=== PATIENT | female | born 1940 | race Caucasian/White ===

== ENCOUNTER 2017-02-07 22:26 | Inpatient (IN) | payer OTHER ==
[~2017-02-07] VITALS: Ht 167.6 cm; Wt 67.1 kg
--- NOTE | ~2017-02-07 | HC ---
[facility] [place] [address] CONSULTATION Name: RENEE SHARPE Room #: 460-P ADM IN M.R.#: [id number] Admission: 02/08/17 Attend Phys: Emory Harvey MD Discharge: Date of : 38 Report #: [id number] THIS REPORT FOR: //name// CC: Ash Mcmillan DATE OF SERVICE: 02/08/2017 PRIMARY CARE PHYSICIAN: Hunter Mcmillan MD. REFERRING PHYSICIAN: Ash Hua MD. REASON FOR REFERRAL: COPD. HISTORY OF PRESENT ILLNESS: The patient is a 76-year-old white female who was brought to the emergency room in respiratory distress. A pulmonary consultation was requested. The patient has known COPD. She was hospitalized at [facility] recently. [place] farm [place]. According to the family, the patient was hospitalized for recent pneumonia. She was said to have Pseudomonas pneumonia. She was in her usual state of health until the day prior to presentation. The patient became markedly short of breath and hypoxic. Saturation was 78%. She was transferred to the emergency room. Chest x-ray in the ER shows mild left lower lobe infiltrate and/or atelectasis. Increased gaseous content was noted in the stomach. Presently, she states that she is better. She appears mildly dyspneic. She denies any chest pain or abdominal discomfort. She looks frail. 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 ALLERGIES: PENICILLIN, reactions not specified; DILTIAZEM, reactions not specified; DOXYCYCLINE, reactions unknown; INDOMETHACIN, reactions unknown; LISINOPRIL, reactions unknown; and SULFA, reactions unknown. HOME MEDICATIONS: List reviewed. This include aspirin, Coreg, Klonopin, Lasix, guaifenesin, potassium supplements, Cozaar, Prevacid, senna, Zocor, Tums, uncertain if this is complete list of home medications. [facility] [address] [place] [address] CONSULTATION Name: RENEE SHARPE Room #: 460-P [facility] IN ..#: [id number] Admission: 02/08/17 Attend Phys: Emory Harvey MD Discharge: Date of : 38 Report #: [id number] FAMILY HISTORY: Noncontributory. SOCIAL HISTORY: The patient has never smoked. She drinks occasionally. MEDICAL DIRECTIVE: She is a DNR. REVIEW OF SYSTEMS: As mentioned above, otherwise 10-point system review negative. PHYSICAL EXAMINATION: GENERAL: She is awake, alert, and appears to be mildly dyspneic and weak. VITAL SIGNS: Temperature is 97.4 degrees Fahrenheit, pulse is 90, respiratory rate is 18, blood pressure is 99/61 mmHg, and saturation is 98%. HEENT: Normocephalic and atraumatic. NECK: Supple, without any lymphadenopathy or thyromegaly. CHEST: Air movements are decreased bilaterally, without obvious wheezes or rales. CARDIOVASCULAR: Normal S1, S2. PMI is nondisplaced. Pulses are 2+/4+ bilaterally. No obvious murmurs or gallop. ABDOMEN: Soft and nontender. No organomegaly or masses felt. GENITOURINARY: Deferred. RECTAL: Deferred. EXTREMITIES: No cyanosis or clubbing. Remarkable for less than 1+ bilateral pretibial edema. LABORATORY DATA: Chest x-ray again shows lung milan are clear with mild left lower lobe infiltrate or atelectasis. Electrolytes unremarkable, except for creatinine of 2.1, BUN is 51, and bicarbonate is 39. Liver function profile is mildly abnormal. WBC 22,100, there is no significant bandemia, hemoglobin 7.1, and platelets are normal. Troponin is normal. Arterial blood gas revealed pH of 7.16, pCO2 of 127, and pO2 of 62 on room air. IMPRESSION: 1. Acute on chronic hypercapnic hypoxic respiratory failure in this 76-year-old white female. Etiology is probably related to underlying chronic obstructive pulmonary disease. Cannot rule out pneumonia given radiographic findings. 2. Mild left lower lobe infiltrate, possible pneumonia. With a recent history of Pseudomonas pneumonia, we will need to cover accordingly. 3. Chronic obstructive pulmonary disease, felt to be severe with an apparent chronic hypercapnic respiratory insufficiency. 4. Renal impairment. Unclear if this is acute or chronic. Presumed acute kidney injury. 5. Generalized debility and weakness. 6. Medical directive: She is a do not resuscitate. RECOMMENDATIONS: Agree with broad-spectrum antibiotics, corticosteroids, and [address] [address] CONSULTATION Name: RENEE SHARPE Janis Room #: 460-P ADM IN M.R.#: [id number] Admission: 02/08/17 Attend Phys: Emory Harvey MD Discharge: Date of : 38 Report #: [id number] bronchodilators. In terms of antibiotics, I would recommend cover for pseudomonal infections given her recent history. I would also consider cover for aspiration possible aspiration pneumonia. We will continue noninvasive positive-pressure ventilation p.r.n. Note that profound hypercapnic respiratory failure suggest that the patient likely has severe pulmonary impairment. Medical directive status noted. Should her pulmonary condition worsens, we will consider comfort care at that time. Thank you for this consultation. <ELECTRONICALLY SIGNED> By: Fred Read MD 02/10/17 1209 1545 0002 Fred Read MD /nt
--- NOTE | ~2017-02-07 | DEA ---
[facility] [place] [address] SUMMARY Name: RENEE SHARPE Room #: 460-P [facility] IN M.R.#: [id number] Admission: 02/08/17 Attend Phys: Emory Harvey MD Discharge: 02/14/17 Date of : 38 Report #: [id number] THIS REPORT FOR: //name// CC: Hunter Harvey DATE OF SERVICE: 02/14/2017 DATE AND TIME OF : 02/14/2017, at 2021. HISTORY OF PRESENT ILLNESS: The patient is a 76-year-old female who presented to [facility] on 02/08/2017, after most recent discharge from the hospital. She has a history of congestive heart failure and COPD. She presented with respiratory distress. She was a resident at a farm. She had recently been hospitalized at [facility] 2 weeks prior for the similar symptoms as well as pseudomonas pneumonia. She is normally on 4.5 liters oxygen continuously. She was found to be in acute on chronic combined respiratory failure and COPD exacerbation as well as renal failure. 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 After discussion with the family, it was decided to put her on the hospice palliative care and she was kept very comfortable and peacefully at the above date and time. The body was released with the family. <ELECTRONICALLY SIGNED> By: Franck Eddy, 02/15/17 1422 0952 1132 Franck Eddy DO /nt
--- NOTE | ~2017-02-07 | HC ---
[facility] [place] [address] CONSULTATION Name: RENEE SHARPE Room #: 460-P [facility] IN M.R.#: [id number] Admission: 02/08/17 Attend Phys: Emory Harvey MD Discharge: Date of : 38 Report #: [id number] THIS REPORT FOR: //name// CC: Hunter Harvey DATE OF SERVICE: 02/11/2017 REQUESTING PHYSICIAN: Dr. Read. REASON FOR CONSULTATION: Palliative care consult. HISTORY OF PRESENT ILLNESS: The patient is a 76-year-old female who presented to [facility] on 02/08/2017 after most recent discharge from the hospital. She has a history of CHF and COPD. She had respiratory distress at her residence at the [facility]. She recently was hospitalized at [facility] 2 weeks for respiratory distress and had Pseudomonas pneumonia. She normally wears about 4-1/2 liters of oxygen continuously, subsequently found to have acute on chronic combined respiratory failure and COPD exacerbation as well as acute renal failure. Unfortunately, the patient has severe end-stage COPD per Pulmonology. She has possible pneumonia as well at this current time. I did discuss this with the patient at today's visit. She reports that currently, she is feeling somewhat better, although she has not had significant recovery in her overall functioning. She is concerned about this as she reports that she was previously helping her significantly at home and she wants to return to that prior level if this is possible to help him. She notes that her quality of life has been declining over the past year. She has a DNR at this time. PAST MEDICAL HISTORY: COPD, chronic hypoxic respiratory failure, history of what appears to be diastolic CHF, history of Pseudomonas pneumonia. ALLERGIES: AMOXICILLIN, DILTIAZEM, DOXYCYCLINE, INDOMETHACIN, LISINOPRIL, SULFA, VERAPAMIL. MEDICATIONS AT HOME: These included aspirin, Coreg, Klonopin, Lasix, guaifenesin, potassium, Cozaar, Prevacid, senna, Zocor, Tums. FAMILY HISTORY: Currently noncontributory. SOCIAL HISTORY: Occasional drinking. She is not currently a smoker. She lives with her at home. She is currently a DNR. REVIEW OF SYSTEMS: GENERAL: The patient reports no particular weight changes. She does report generalized malaise and fatigue. HEENT: Denies any visual changes. [address] [address] CONSULTATION Name: RENEE SHARPE Room #: 460-P [facility] IN .R.#: [id number] Admission: 02/08/17 Attend Phys: Emory Harvey MD Discharge: Date of : 38 Report #: [id number] CARDIOVASCULAR: Denies chest pain, palpitations. Does report some mild lower extremity edema. RESPIRATORY: Reports shortness of breath, cough and wheezing. ABDOMEN: Denies nausea, vomiting, constipation or diarrhea. EXTREMITIES: Does report generalized weakness. PHYSICAL EXAMINATION: VITAL SIGNS: Include temperature 36.4, pulse 108, respirations 18, blood pressure 112/68, oxygen 99%, this is on 5 liters, which we did lower slightly back to her reference of 4. GENERAL: The patient appears to be in mild respiratory distress. CARDIOVASCULAR: Regular rate and rhythm without murmur, slightly tachycardic. RESPIRATORY: Does have diffuse mild wheezing. LUNGS: Diminished breath sounds noted all throughout her lungs. ABDOMEN: Soft, nontender to palpation x 4. Positive bowel sounds noted in 4 quadrants. EXTREMITIES: Moves all extremities without difficulty. SKIN: No apparent skin changes. NEUROLOGIC: Alert and oriented x 3. She appears to have good attention level at this time. LABORATORY DATA: These include white blood cells 10.0, hemoglobin 9.4. Sodium 143, creatinine 1.6. ASSESSMENT AND PLAN: The patient is a 76-year-old female with the following medical concerns: 1. Acute on chronic combined respiratory failure. At this time, I spent approximately 30 minutes on advanced care planning. Discussed her options of care including physical therapy in such facility as a snf versus home health and that overall, she may benefit more from snf therapy. I did discuss the option of hospice today and confirmed her no code status. The patient is more concerned about her and his overall functioning at home. She states that she would like to get back to activities of daily living function ability to where she can help around the house. Did discuss with her overall prognosis. She is aware that she may have end-stage chronic obstructive pulmonary disease and that she may have considerably a shortened lifespan at this time. She is amenable to the possibility of hospice services, but would like to discuss with family prior to making any decisions. 2. Chronic obstructive pulmonary disease with acute exacerbation. I again reaffirmed the severity of her chronic obstructive pulmonary disease. 3. Left lower lobe infiltrates, may be concerning for pneumonia, treatment per Pulmonology. 4. Acute kidney injury, treatment per primary team. 5. Generalized deconditioning. Again, the patient may benefit from the addition of therapy outpatient in the snf setting. I do not think this is what the patient will be most amenable to given the fact that she wants [facility] [address] [place] [address] CONSULTATION Name: RENEE SHARPE Room #: 460-P ADM IN .R.#: [id number] Admission: 02/08/17 Attend Phys: Emory Harvey MD Discharge: Date of : 38 Report #: [id number] to get home and also have activities of daily living ability. We will revisit tomorrow and see if there is any decisions that have been made. Thank you very much for the consultation. By: [id number] [id number] Devan Musa DO /fernando
--- NOTE | ~2017-02-07 | EKG ---
[address] [place] [address] ELECTROCARDIOGRAM REPORT Name: RENEE SHARPE Room #: 460-P [facility] IN .R.#: [id number] Admission: 02/08/17 Attend Phys: Ash Hua MD Discharge: Date of : 38 Report #: [id number] THIS REPORT FOR: //name// [facility] Test Date: 2017-02-07 Test Time: 23:00:39 Pat Name: RENEE SHARPE Department: Room: [facility] Gender: F Promotions Manager: SHELLIE : 1940 Requested By: Jamie Aceves Order Number: [id number] MD: Lb Cotter Measurements Intervals [place] Rate: 123 P: 38 AR: 137 QRS: -41 QRSD: 81 T: 78 QT: 316 QTc: 452 Interpretive Statements Incomplete analysis due to missing data in precordial lead(s) Sinus tachycardia Left anterior fascicular block Poor R wave progression Missing lead(s): V5 No previous ECG available for comparison recommend repeat tracing with all precordial leads Electronically Signed On 02-09-2017 13:33:34 CDT by Lb Cotter [email or web address] <ELECTRONICALLY SIGNED> By: Lb Cotter MD, [facility] 02/09/17 1333 230 2300 Lb Cotter MD, [facility] /EPI
--- NOTE | ~2017-02-07 | 2DMMODE ---
[facility] [address] [place] [address] 2 D/M-MODE ECHOCARDIOGRAM Name: RENEE SHARPE Room #: 460-P [facility] IN .R.#: [id number] Admission: 02/08/17 Attend Phys: Carlo Castellon Discharge: Date of : 36 Date of Service: 02/10/17 1028 Report #: [id number] THIS REPORT FOR: //name// APPROVED REPORT Study performed: 02/10/2017 09:30:31 EXAM: Comprehensive 2D, Doppler, and color-flow Echocardiogram Patient Location: Bedside Room #: [facility] Status: routine BSA: 1.74 BP: 142/83 mmHg Other Information Study Quality: Adequate Technically limited study due to inability to position patient, lung disease. Indications Congestive Heart Failure COPD Dyspnea 2D Dimensions RVDd: 41.30 mm LVEF(%): 56.24 (>50%) IVSd: 12.90 (7-11mm) LVOT Diam: 20.35 (18-24mm) LVDd: 37.90 mm PWd: 11.79 (7-11mm) Ascending Ao: 28.48 (22-36mm) LVDs: 26.97 (25-40mm) Aortic Root: 29.86 mm Sotelo's LVEF: 56.24 % Volumes Left Atrial Volume (Systole) Single Plane 4CH: 38.80 mL Single Plane 2CH: 59.46 mL LA ESV Index: 31.00 mL/m2 Aortic Valve AoV Peak Aaron.: 1.58 m/s AO Peak Gr.: 10.82 mmHg LVOT Max P.47 mmHg LVOT Max V: 1.46 m/s SURESH Vmax: 3.00 cm2 [facility] [place] [address] [place] [address] 2 D/M-MODE ECHOCARDIOGRAM Name: RENEE SHARPE Janis Room #: 460-P [facility] IN [facility].#: [id number] Admission: 02/08/17 Attend Phys: Carlo Castellon Discharge: Date of : 38 Date of Service: 02/10/17 1028 Report #: [id number] Mitral Valve E/A Ratio: 0.8 MV Decel. Time: 266.51 ms MV E Max Aaron.: 0.81 m/s MV A Aaron.: 1.08 m/s MV PHT: 77.29 ms IVRT: 128.03 ms Pulmonary Valve PV Peak Aaron.: 1.14 m/s PV Peak Gr.: 5.16 mmHg Tricuspid Valve TR Peak Aaron.: 3.50 m/s RAP Estimate: 10.00 mmHg TR Peak Gr.: 49.07 mmHg Left Ventricle The left ventricle is normal size. Mild concentric left ventricular hypertrophy. The left ventricular systolic function is normal. The left ventricular ejection fraction is within the normal range. LVEF is 55-60%. Mild diastolic dysfunction is present (impaired relaxation pattern). Right Ventricle Right ventricle is mildly dilated. The right ventricular systolic function is normal. Atria Left atrium is mildly enlarged. Right atrium is moderately dilated. Aortic Valve The Aortic valve is sclerotic. No aortic regurgitation is present. There is no aortic valvular stenosis. Mitral Valve Mild mitral annular calcification. Trace mitral regurgitation. No evidence of mitral valve stenosis. Tricuspid Valve The tricuspid valve is normal in structure. There is moderate tricuspid regurgitation. The right atrial pressure is estimated at 10 mmHg. PAP is estimated at 60 mmHg. Pulmonic Valve The pulmonary valve is normal in structure. Mild pulmonic regurgitation. [facility] [address] [place] [address] 2 D/M-MODE ECHOCARDIOGRAM Name: RENEE SHARPE Room #: 460-P [facility] IN .R.#: [id number] Admission: 02/08/17 Attend Phys: Carlo Castellon Discharge: Date of : 36 Date of Service: 02/10/17 1028 Report #: [id number] Great Vessels The aortic root is normal in size. IVC is not visualized. <Conclusion> The left ventricle is normal size. Mild concentric left ventricular hypertrophy. The left ventricular systolic function is normal. Right ventricle is mildly dilated. Left atrium is mildly enlarged. Right atrium is moderately dilated. The Aortic valve is sclerotic. Trace mitral regurgitation. There is moderate tricuspid regurgitation. The right atrial pressure is estimated at 10 mmHg. PAP is estimated at 60 mmHg. <ELECTRONICALLY SIGNED> By: Conner Yung MD 02/10/17 1028 1028 1028 Conner Yung MD /INF
--- NOTE | ~2017-02-07 | EKG ---
[address] [address] ELECTROCARDIOGRAM REPORT Name: RENEE SHARPE Room #: 460-P ADM IN M.R.#: [id number] Admission: 02/08/17 Attend Phys: Emory Harvey MD Discharge: Date of : 38 Report #: [id number] THIS REPORT FOR: //name// [facility] Test Date: 2017-02-10 Test Time: 13:42:32 Pat Name: RENEE SHARPE Department: Room: 460 Gender: F Lead Process Engineer: elvia : 1940 Requested By: Emory Harvey Order Number: [id number] MD: Mehdi Salinas Measurements Intervals [place] Rate: 119 P: 54 ID: [id number] QRS: -24 QRSD: 81 T: 48 QT: 309 QTc: 435 Interpretive Statements Sinus tachycardia Multiple ventricular premature complexes and PACs Borderline left axis deviation Electronically Signed On 02-10-2017 14:09:07 CDT by Mehdi Salinas [email or web address] <ELECTRONICALLY SIGNED> By: Mehdi Salinas MD 02/10/17 1409 D: 09/1341 134 Mehdi Salinas MD /RAQUEL
[2017-02-07 22:44] VITALS: BP 120/60
[2017-02-07 23:16] LABS: HEMATOCRIT 31.8 % (37.0-47.0); HEMOGLOBIN 10.1 gm/dL (12.0-15.0); MCH 31.6 pg (26.0-34.0); MCHC 31.7 g/dL (28.0-37.0); MCV 99.9 fL (80.0-100.0); PLATELET COUNT 192 thou/uL (150-400); RBC 3.18 mil/uL (4.20-5.00); RDW 16.1 % (10.5-14.5); WBC 22.1 thou/uL (4.0-11.0)
[2017-02-07 23:23] LABS: MANUAL DIFF YES
[2017-02-07 23:30] LABS: APTT 25.3 Seconds (24.5-32.8); PROTIME 9.5 Seconds (9.3-11.4)
[2017-02-07 23:31] LABS: CREATININE 2.1 mg/dL (0.6-1.0); POTASSIUM 4.2 mmol/L (3.5-5.1)
[2017-02-07 23:36] LABS: ALBUMIN 2.9 g/dL (3.4-5.0); MAGNESIUM 2.1 mg/dL (1.8-2.4); TOTAL BILIRUBIN 0.4 mg/dL (<0.1-1.0); TOTAL PROTEIN 7.2 g/dL (6.4-8.2); TROPONIN-I 0.04 ng/mL (<0.04-0.07)
[2017-02-08] VITALS (8 sets, daily range): BP systolic 78–131; BP diastolic 46–89
[2017-02-08 00:02] LABS: ABG SAMPLE TYPE ARTERIAL; BE(vivo) 12.4 mmol/L (-2 to +3); HCO3 45.3 mmol/L (22.0-26.0); O2(CT) 13.9 mL/dL (15.0-23.0); O2Hb 85.1 % (92.0-98.0); PCO2 127.9 mmHg (35.0-45.0); PO2 62.7 mmHg (80.0-100.0); STICK SITE R.RADIAL; pH 7.167 (7.360-7.450); sO2 82.7 % (92.0-98.0); tCO2 49.2 mmol/L (24.0-30.0)
[2017-02-08 00:03] LABS: FIO2 21 %
[2017-02-08 00:38] LABS: ABSOLUTE NEUTROPHILS 17.2 thou/uL (1.4-8.2); ANISOCYTOSIS 1+; LARGE PLATELETS OCCASIONAL; TOTAL CELL COUNT 100
[2017-02-08] MEDS ORDERED: ASPIR 8181 M1 PO (04:13)
[2017-02-08] MEDS ORDERED: CARVEDILOL3.125 MG PO (04:13)
[2017-02-08] MEDS ORDERED: KLONOPIN0.5 MG PO (04:14)
[2017-02-08] MEDS ORDERED: FUROSEMIDE 40 M40 M1 PO (04:15)
[2017-02-08] MEDS ORDERED: GUAIFENESIN ER600 MG PO (04:19)
[2017-02-08] MEDS ORDERED: KLOR-CON20 ME1 PO (04:20)
[2017-02-08] MEDS ORDERED: COZAAR 25 MG TA25 M1 PO (04:20)
[2017-02-08] MEDS ORDERED: ZOCOR20 MG PO (04:21)
[2017-02-08] MEDS ORDERED: PREVACID15 MG PO (04:21)
[2017-02-08] MEDS ORDERED: SENNA8.6 MG PO (04:21)
[2017-02-08] MEDS ORDERED: TUMS PO (04:22)
[2017-02-08 18:23] LABS: ALBUMIN 2.5 g/dL (3.4-5.0); CALCIUM 8.9 mg/dL (8.5-10.1); CREATININE 1.7 mg/dL (0.6-1.0); POTASSIUM 4.9 mmol/L (3.5-5.1); TOTAL BILIRUBIN 0.5 mg/dL (<0.1-1.0); TOTAL PROTEIN 6.5 g/dL (6.4-8.2)
[2017-02-08 18:28] LABS: HEMATOCRIT 28.7 % (37.0-47.0); HEMOGLOBIN 9.1 gm/dL (12.0-15.0); MCH 31.7 pg (26.0-34.0); MCHC 31.8 g/dL (28.0-37.0); MCV 99.6 fL (80.0-100.0); RBC 2.88 mil/uL (4.20-5.00); RDW 16.2 % (10.5-14.5); WBC 21.2 thou/uL (4.0-11.0)
[2017-02-09 04:15] VITALS: BP 84/59
[2017-02-09 05:26] LABS: ALBUMIN 2.3 g/dL (3.4-5.0); CREATININE 1.7 mg/dL (0.6-1.0); POTASSIUM 4.6 mmol/L (3.5-5.1); TOTAL BILIRUBIN 0.3 mg/dL (<0.1-1.0); TOTAL PROTEIN 6.2 g/dL (6.4-8.2)
[2017-02-09 07:52] LABS: HEMATOCRIT 28.6 % (37.0-47.0); HEMOGLOBIN 9.1 gm/dL (12.0-15.0); MCHC 31.9 g/dL (28.0-37.0); MCV 100.3 fL (80.0-100.0); RBC 2.85 mil/uL (4.20-5.00); RDW 16.4 % (10.5-14.5); WBC 17.9 thou/uL (4.0-11.0)
[2017-02-09 08:17] VITALS: BP 99/51
[2017-02-09 12:11] VITALS: BP 86/49
[2017-02-09 15:51] VITALS: BP 134/97
[2017-02-09 19:44] VITALS: BP 93/54
[2017-02-10] VITALS: BP 110/64
[2017-02-10 05:32] VITALS: BP 108/67
[2017-02-10 06:35] LABS: HEMATOCRIT 28.3 % (37.0-47.0); HEMOGLOBIN 8.9 gm/dL (12.0-15.0); MCH 31.2 pg (26.0-34.0); MCHC 31.3 g/dL (28.0-37.0); MCV 99.7 fL (80.0-100.0); RBC 2.84 mil/uL (4.20-5.00); RDW 16.2 % (10.5-14.5); WBC 16.1 thou/uL (4.0-11.0)
[2017-02-10 06:45] LABS: ALBUMIN 2.3 g/dL (3.4-5.0); CALCIUM 9.3 mg/dL (8.5-10.1); CREATININE 1.8 mg/dL (0.6-1.0); POTASSIUM 4.1 mmol/L (3.5-5.1); TOTAL BILIRUBIN 0.3 mg/dL (<0.1-1.0); TOTAL PROTEIN 6.4 g/dL (6.4-8.2)
[2017-02-10 07:33] VITALS: BP 142/83
[2017-02-10 11:46] VITALS: BP 101/61
[2017-02-10 13:40] LABS: ABG SAMPLE TYPE ARTERIAL; BE(vivo) 10.1 mmol/L (-2 to +3); HCO3 39.5 mmol/L (22.0-26.0); LACTATE 1.66 mmol/L (0.5-2.0); O2(CT) 14.8 mL/dL (15.0-23.0); O2Hb 91.8 % (92.0-98.0); tCO2 42.2 mmol/L (24.0-30.0)
[2017-02-10 13:41] LABS: PCO2 85.1 mmHg (35.0-45.0); pH 7.285 (7.360-7.450)
[2017-02-10 13:42] LABS: Pressure Support 6 cm H20; STICK SITE L.BRACHIAL
[2017-02-10 16:32] VITALS: BP 121/107
[2017-02-10 19:21] VITALS: BP 98/53
[2017-02-11 03:46] LABS: HEMATOCRIT 28.6 % (37.0-47.0); HEMOGLOBIN 9.4 gm/dL (12.0-15.0); MCHC 32.8 g/dL (28.0-37.0); MCV 97.6 fL (80.0-100.0); PLATELET COUNT 157 thou/uL (150-400); RBC 2.93 mil/uL (4.20-5.00); RDW 16.1 % (10.5-14.5)
[2017-02-11 03:47] LABS: MANUAL DIFF YES
[2017-02-11 04:01] LABS: CALCIUM 9.7 mg/dL (8.5-10.1); CREATININE 1.6 mg/dL (0.6-1.0); POTASSIUM 3.8 mmol/L (3.5-5.1)
[2017-02-11 04:36] VITALS: BP 107/70
[2017-02-11 08:00] VITALS: BP 121/73
[2017-02-11 09:21] LABS: ABSOLUTE NEUTROPHILS 9.7 thou/uL (1.4-8.2); PLATELET ESTIMATE NORMAL; TOTAL CELL COUNT 100
[2017-02-11 12:23] VITALS: BP 124/67
[2017-02-11 15:36] VITALS: BP 120/66
[2017-02-11 19:45] VITALS: BP 112/68
[2017-02-12 04:50] VITALS: BP 135/76
[2017-02-12 05:05] LABS: CALCIUM 9.6 mg/dL (8.5-10.1); CREATININE 1.7 mg/dL (0.6-1.0); POTASSIUM 3.9 mmol/L (3.5-5.1)
[2017-02-12 07:59] VITALS: BP 145/91
[2017-02-12 12:07] VITALS: BP 133/79
[2017-02-12 16:34] VITALS: BP 161/97
[2017-02-12 20:09] VITALS: BP 125/62; BP 140/74
[2017-02-13 08:44] VITALS: BP 119/71
[2017-02-13 20:14] VITALS: BP 100/59
[2017-02-14 07:16] VITALS: BP 99/53
== END 2017-02-14 20:22 | DRG 871 ==
LOC: ER 22:26 → 4W 02-08 00:21 → EROBS 02-08 00:21 → 4W 02-08 02:28
PROVIDERS: Emergency Medicine; Hospitalist; Internal Medicine; Nurse Practitioner Family
PROC: 5A09457 Assistance with Respiratory Ventilation, 24-96 Consecutive Hours, Continuous Positive Airway Pressure (ICD-10-PCS; principal; 2017-02-11)
DX: A41.9 Sepsis, unspecified organism (principal); J96.21 Acute and chronic respiratory failure with hypoxia; J15.6 Pneumonia due to other Gram-negative bacteria; I50.33 Acute on chronic diastolic (congestive) heart failure; J96.22 Acute and chronic respiratory failure with hypercapnia; N17.9 Acute kidney failure, unspecified; J44.1 Chronic obstructive pulmonary disease with (acute) exacerbation; J44.0 Chronic obstructive pulmonary disease with (acute) lower respiratory infection; Z66 Do not resuscitate; E78.5 Hyperlipidemia, unspecified; D64.9 Anemia, unspecified; N18.9 Chronic kidney disease, unspecified; Z51.5 Encounter for palliative care; I27.2 Other secondary pulmonary hypertension; I95.9 Hypotension, unspecified; Z79.899 Other long term (current) drug therapy; Z79.82 Long term (current) use of aspirin; Z88.0 Allergy status to penicillin; Z88.1 Allergy status to other antibiotic agents; Z88.8 Allergy status to other drugs, medicaments and biological substances; Z88.2 Allergy status to sulfonamides
CPT/HCPCS: 10045